=== PATIENT | female | born 1985 | race Caucasian/White ===

== ENCOUNTER 2018-02-06 01:43 | Observation (INO) ==
[2018-02-06 03:07] LABS: Basophils % 0.5 %; Eosinophils # 0.1 K/mcL (0.0-0.6); Eosinophils % 1.2 %; Hematocrit 38.3 % (35.3-44.9); Hemoglobin 13.4 g/dL (11.5-15.4); Immature Granulocytes % 0.2 % (0-4); Lymphocytes % 24.2 %; Mean Corpuscular Hemoglobin 31.2 pg (28.0-33.3); Mean Corpuscular Volume 89.3 fL (83.0-100.0); Monocytes # 0.8 K/mcL (0.0-1.3); Monocytes % 10.2 %; Neutrophils # 5.2 K/mcL (1.6-8.9); Platelet Count 270 K/mcL (140-400); Red Blood Count 4.29 M/mcL (3.82-4.97); Red Cell Distribution Width 13.3 % (11.5-14.5); Segmented Neutrophils % 63.7 %
[2018-02-06 03:28] LABS: BUN/Creatinine Ratio 17 (6-26); Blood Urea Nitrogen 12 mg/dL (6-20); C-Reactive Protein 10 mg/L (Less than 10); Calcium 9.8 mg/dL (8.6-10.3); Carbon Dioxide 27 mEq/L (23-29); Chloride 107 mEq/L (98-107); Glucose 95 mg/dL (70-105); Osmolality,Calculated 296 (280-300); Potassium 3.6 mEq/L (3.5-5.1); Sodium 143 mEq/L (136-145); eGFR For African Americans > 60 (> 60); eGFR For Non-African Americans > 60 (> 60)
[2018-02-06] MEDS ORDERED: Ibuprofen 600 MG TABLET PO ONE (04:07)
--- NOTE | 2018-02-06 04:08 | Emergency Department Note ---
Disposition Clinical Impression: Cellulitis Qualifiers: Site of cellulitis: extremity Site of cellulitis of extremity: lower extremity Laterality: unspecified laterality Qualified Code(s): L03.119 - Cellulitis of unspecified part of limb Disposition: Admitted As Inpatient Condition: Fair General Adult HPI - General Chief complaint: ED Extremity Injury, Lower Stated complaint: BLE swelling Time Seen by Provider: 02/06/18 02:41 Source: patient Limitations: no limitations Nursing Notes Reviewed: Yes Vital Signs Reviewed: Yes - History of Present Illness HPI Narrative: 32-year-old female presents to the emergency department with concern for redness and swelling of the lower extremities. Patient states that [place] Patient reports recently been on amoxicillin for a tooth abscess couple weeks ago and has just finished her course of antibiotics. Patient reports noticing the redness on the left medial ankle cool as well as the right lateral ankle as well. No fevers. Pain Scale: 10 - Related Data Home Medications Medication Instructions Recorded Confirmed Unable To Obtain [Unable to Obtain] 02/06/18 02/06/18 Allergies Allergy/AdvReac Type Severity Reaction Status Date / Time No Known Drug Allergies Allergy See Verified 08/12/15 07:58 Comments All systems ED: reviewed and negative except as stated. 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 Absent: respiratory distress - Cardiovascular Cardiovascular exam: Present: regular rate, normal rhythm, normal heart sounds - Abdominal Exam Abdominal exam: Present: soft, Non-Tender - Expanded Lower Extremity Exam Lower leg exam: Present: other (Mild erythema and tenderness to palpation of the medial malleolus of the left lower extremity as well as the right lateral malleolus of the lower extremity.) - Back Exam Back exam: Present: normal inspection - Neurological Exam Neurological exam: Present: alert, oriented X3 - Psychiatric Psychiatric exam: Present: normal affect, normal mood - Skin Skin exam: Present: warm, dry, intact Course Vital Signs Temperature 97.8 F 02/06/18 01:45 Pulse Rate 112 02/06/18 01:45 Respiratory Rate 18 02/06/18 01:45 Blood Pressure 131/82 02/06/18 01:45 O2 Sat by Pulse Oximetry 97 02/06/18 01:45 Temperature 97.8 F 02/06/18 02:17 Pulse Rate 89 02/06/18 03:57 Respiratory Rate 15 02/06/18 03:57 Blood Pressure 118/80 02/06/18 03:57 O2 Sat by Pulse Oximetry 99 02/06/18 03:57 Oxygen Delivery Oxygen Delivery Room Air Medical Decision Making - MDM Narrative Medical decision making narrative: 31-year-old female presents to the emergency department with concern for cellulitis of the lower extremities bilaterally. Patient has recently been on amoxicillin for antibiotics for a dental abscess. There is some concern for possibility of lack of follow-up recently to patient having worsening condition. CBCs within normal limits as well as a BMP. CRP and sedimentation rate are mildly elevated. No concern for osteomyelitis at this time. At this time, we will admit this patient to the hospital for IV antimicrobials. Patient requested nicotine patch. We have provided this. We also provided ibuprofen for analgesia. Patient hemodynamically stable not in any acute distress at time of admission. Patient agreed with the plan. Patient was initially tachycardic with a pulse of 112. This has since resolved and is currently 89. Vital Signs Temperature 97.8 F 02/06/18 01:45 Pulse Rate 112 02/06/18 01:45 Respiratory Rate 18 02/06/18 01:45 Blood Pressure 131/82 02/06/18 01:45 O2 Sat by Pulse Oximetry 97 02/06/18 01:45 Temperature 97.8 F 02/06/18 02:17 Pulse Rate 89 05/16/18 03:57 Respiratory Rate 15 02/06/18 03:57 Blood Pressure 118/80 02/06/18 03:57 O2 Sat by Pulse Oximetry 99 02/06/18 03:57 Oxygen Delivery Oxygen Delivery Room Air - Lab Data Result diagrams: 02/06/18 02:59 02/06/18 02:59 Lab Results 02/06/18 02/06/18 02/06/18 Range/Units 02:59 02:59 02:59 WBC 8.1 (4.3-11.1) K/mcL RBC 4.29 (3.82-4.97) M/mcL Hgb 13.4 (11.5-15.4) g/dL Hct 38.3 (35.3-44.9) % MCV 89.3 (83.0-100.0) fL MCH 31.2 (28.0-33.3) pg MCHC 35.0 (31.6-35.5) g/dL RDW 13.3 (11.5-14.5) % Plt Count 270 (140-400) K/mcL MPV 9.0 L (9.4-12.4) fL Immature Gran % 0.2 (0-4) % Seg Neutrophils % 63.7 % Lymphocytes % 24.2 % Monocytes % 10.2 % Eosinophils % 1.2 % Basophils % 0.5 % Neutrophils # 5.2 (1.6-8.9) K/mcL Lymphocytes # 2.0 (0.6-4.6) K/mcL Monocytes # 0.8 (0.0-1.3) K/mcL Eosinophils # 0.1 (0.0-0.6) K/mcL Basophils # 0.0 (0.0-0.2) K/mcL ESR 21 H (0-15) mm/hr Sodium 143 (136-145) mEq/L Potassium 3.6 (3.5-5.1) mEq/L Chloride 107 (98-107) mEq/L Carbon Dioxide 27 (23-29) mEq/L BUN 12 (6-20) mg/dL Creatinine 0.71 (0.60-1.20) mg/dL Est GFR ( Amer) > 60 (> 60) Est GFR (Non-Af Amer) > 60 (> 60) BUN/Creatinine Ratio 17 (6-26) Glucose 95 (70-105) mg/dL Calculated Osmolality 296 (280-300) Calcium 9.8 (8.6-10.3) mg/dL C-Reactive Protein 10 H (Less than 10) mg/L Attestation Statement - Attestation Attestation: I examined this patient and my medical decision-making was reviewed with the Resident Physician. I agree with the documented findings, disposition and treatment plan as described except to the extent set forth below. 32-year-old female who was picking mushrooms barefoot and developed lower ankle cellulitis. She has not taken any medications for this. Due to the rapid progression of the infection I would proceed with admission and initiation of antibiotics vancomycin.
[2018-02-06] MEDS: Nicotine 14 MG PATCH.TD24 TD SCH ×2 (04:46→09:14)
[2018-02-06] MEDS ORDERED: Naloxone 0.4 MG/ML INJ IVP PRN (07:50)
--- NOTE | 2018-02-06 07:54 | Internal Med History&Physical ---
Date of Encounter: 02/06/18 Time of Encounter: 07:50 Internal Medicine - H&P: HPI Chief complaint: Bilateral ankle pain redness and swelling Admitted From: Home History of present illness: Ms. Bailey is a 32 year old female with no significant past medical history came to ER with concern for bilateral pain, redness and swelling of the lower extremity is started 3 days ago. [place] think got infected [place] there. Patient has been on amoxicillin for a tooth abscess and is still taking at present but is still guarded infection therefore made her concerned. In ER initial lab tests not a significant finding except elevated CRP. ER physician called on-call hospitalists for the admission with the concern of new onset bilateral cellulitis even on oral antibiotic on OPD basis. Patient denies fever, chills, nausea, vomiting, headache, dizziness, chest pain , shortness of breath, abdominal pain, urinary or bowel complaint. Past Med Surg Social Fam HX - Past Medical History Medical history: no medical history, other Psychiatric history: no psych history - Past Surgical History Surgical History: appendectomy, cholecystectomy - Social History Smoking Status: Current every day smoker Smokeless Tobacco Status: No Alcohol use: none Drug use: marijuana Internal Medicine - H&P: Meds Unable To Obtain [Unable to Obtain] 02/06/18 [History] 3 Allergy/AdvReac Type Severity Reaction Status Date / Time No Known Drug Allergies Allergy See Verified 08/12/15 07:58 Comments All Systems PM: A 10-system review of systems was performed and is negative for pertinent findings except as documented above in the HPI. - Constitutional Vitals: Temp Pulse Resp BP Pulse Ox 98.1 F 76 15 116/68 99 02/06/18 06:29 02/06/18 06:29 02/06/18 06:29 02/06/18 06:29 02/06/18 06:29 Exam: General appearance: No acute distress, A&O X 3 Head exam: Atraumatic Eye exam: EOMI, PERRLA ENT exam: Moist oral mucosa Neck nontender, supple Respiratory exam: Clear to auscultation bilaterally Cardiovascular exam: Regular rate and rhythm, no systolic murmur Abdominal exam: Soft, nontender, nondistended, positive bowel sounds Extremities exam: No calf tenderness, Homans sign negative. Motor 5 x 5 in all extremities Skin -Bilateral ankle redness, swelling, warm, moderate tenderness but no open wound or abscess Neurological exam: Alert, awake, oriented 3, CN II-XII intact, no focal deficits. No facial droop. Normal speech. Normal gait. Romberg sign negative Internal Med - H&P Results - Labs CBC & Chem 7: 02/06/18 02:59 02/06/18 02:59 - Assessment and plan (1) DVT prophylaxis Current Visit: Yes Status: Acute Assessment and plan: Lovenox, SCDs (2) Cellulitis Current Visit: Yes Status: Acute Assessment and plan: Bilateral especially ankle. No open wound or abscess. Consider failed outpatient therapy as infection develop while as patient was already on amoxicillin for tooth abscess. Vancomycin as started in the ER. Leg elevation supportive treatment pain management continue vancomycin. Not convinced to do Doppler venous ultrasound at this time due to very low risk and Homans sign negative with no calf tenderness but will consider if any concern arise Qualifiers: Site of cellulitis: extremity Site of cellulitis of extremity: lower extremity Laterality: unspecified laterality Qualified Code(s): L03.119 - Cellulitis of unspecified part of limb - Time Spent With Patient Total time spent is greater than 50% in coordination of care (as documented) at patient's floor/unit and/or counseling patient: 25 - 35 minutes
[2018-02-06] MEDS ORDERED: Vancomycin (wt based) 1,000 MG VIAL IV SCH (08:00)
[2018-02-06] MEDS ORDERED: Nicotine 14 MG PATCH.TD24 TD SCH (09:00)
[2018-02-07 05:40] LABS: Basophils # 0.1 K/mcL (0.0-0.2); Basophils % 0.9 %; Eosinophils # 0.2 K/mcL (0.0-0.6); Eosinophils % 4.2 %; Hemoglobin 12.8 g/dL (11.5-15.4); Immature Granulocytes % 0.2 % (0-4); Lymphocytes # 2.1 K/mcL (0.6-4.6); Lymphocytes % 37.3 %; Mean Corpuscular HGB Conc 32.8 g/dL (31.6-35.5); Mean Corpuscular Hemoglobin 29.7 pg (28.0-33.3); Mean Corpuscular Volume 90.5 fL (83.0-100.0); Mean Platelet Volume 9.6 fL (9.4-12.4); Monocytes # 0.6 K/mcL (0.0-1.3); Monocytes % 11.2 %; Neutrophils # 2.6 K/mcL (1.6-8.9); Platelet Count 272 K/mcL (140-400); Red Blood Count 4.31 M/mcL (3.82-4.97); Red Cell Distribution Width 13.2 % (11.5-14.5); Segmented Neutrophils % 46.2 %
[2018-02-07 05:57] LABS: BUN/Creatinine Ratio 16 (6-26); Blood Urea Nitrogen 10 mg/dL (6-20); Calcium 9.1 mg/dL (8.6-10.3); Carbon Dioxide 28 mEq/L (23-29); Chloride 109 mEq/L (98-107); Glucose 94 mg/dL (70-105); Osmolality,Calculated 289 (280-300); Potassium 3.8 mEq/L (3.5-5.1); Sodium 140 mEq/L (136-145); eGFR For African Americans > 60 (> 60); eGFR For Non-African Americans > 60 (> 60)
[2018-02-07] MEDS ORDERED: *HR* Enoxaparin 40 MG/0.4 ML SYRINGE SQ SCH (06:00)
[2018-02-07 06:07] LABS: Platelet Estimate Normal (Normal)
[2018-02-07 06:08] LABS: Reactive Lymphocytes Present (Not Present)
[2018-02-07 07:25] VITALS: BP 118/85
[2018-02-07] MEDS: Nicotine 14 MG PATCH.TD24 TD SCH (08:23)
--- NOTE | 2018-02-07 10:47 | Discharge Summary ---
- NOTES TO OUTPATIENT PROVIDER Notes to Outpatient Provider: Patient admitted with bilateral lower extremity cellulitis surrounding her ankles. Has now resolved. Will complete short antibiotic course at home. Orders not resulted at time of discharge: Pending orders 02/07/18 14:00 Vancomycin,Trough Timed Date of Encounter: 02/07/18 Time of Encounter: 10:45 - Discharge Diagnosis (1) Cellulitis Priority: Secondary Status: Acute Qualifiers: Site of cellulitis: extremity Site of cellulitis of extremity: lower extremity Laterality: unspecified laterality Qualified Code(s): L03.119 - Cellulitis of unspecified part of limb (2) DVT prophylaxis Priority: Secondary Status: Acute Hospital course: Ms. Bailey is a 32 year old female Patient with no significant past medical history who was hospitalized here with bilateral lower extremity cellulitis surrounding her ankles. She reported that these symptoms started after she had been collecting mushrooms and believed that it may have been infected over there. Cellulitis has resolved after she received IV antibiotics yesterday. She is clinically stable for discharge. She will be going home on oral antibiotics today. Discharge discussed with: patient - Time Spent with Patient Total time spent providing and/or coordinating discharge services: Less than 30 minutes (20 min) - Discharge Medications Prescriptions: Sulfamethoxazole/Trimeth DS [Bactrim DS] 1 each PO BID #10 tablet Home Medications: Ibuprofen [Motrin] 800 mg PO BID PRN 02/06/18 [History] Sulfamethoxazole/Trimeth DS [Bactrim DS] 1 each PO BID #10 tablet 02/07/18 [Rx] Allergies/Adverse Reactions: 3 Allergy/AdvReac Type Severity Reaction Status Date / Time No Known Drug Allergies Allergy See Verified 02/06/18 09:11 Comments Date of admission: 02/06/18 04:14 Primary care physician: PCP NONE Discharging clinician: Seema Hirsch Anticipated date of discharge: 02/07/18 - Constitutional Vitals: Temp Pulse Resp BP Pulse Ox 98.0 F 90 16 118/85 97 02/07/18 07:22 02/07/18 07:22 02/07/18 07:22 02/07/18 07:22 02/07/18 07:22 General appearance: Present: cooperative, A&O X 3, answers questions appropriately - Neck Neck exam general surgery: Present: supple, trachea midline. Absent: lymphadenopathy - Respiratory Respiratory exam: Present: CTAB. Absent: accessory muscle use, rales, rhonchi, wheezes - Cardiovascular Cardiovascular exam: Present: RRR, +S1, +S2. Absent: diastolic murmur, gallop, rubs, systolic murmur - GI/Abdominal GI/Abdominal exam: Present: normal bowel sounds, soft, no peritoneal signs. Absent: distended, tenderness - Extremities Exam Extremities exam: Present: warm, radial pulses palpable and symmetrical. Absent : calf tenderness, cyanotic, pedal edema - Patient Status Disposition: Home, Self-Care Condition: Good Functional capacity at discharge: independent ambulation Overall status at discharge: patient is progressing back to baseline - Discharge Instructions Instructions: Cellulitis (DC) Follow Up With: Jean-Pierre Bennett MD [Non-Partnered Physician] - (Please bring photo ID, insurance card and any medications in the original bottle. If you need to cancel please give a 24 hour notice. Thank you) NONE,PCP [Primary Care Provider] - (in 1-2 weeks) - Diet and Activity Activity: increase activity as tolerated Diet: advance to your usual diet
[2018-02-07] MEDS ORDERED: Aminoglycoside Consult 1 EACH MC ONE (12:29)
== END 2018-02-07 12:30 | disposition home or self-care (01) ==
LOC: EMEROO 01:43 → 3ANU 01:43
PROVIDERS: ADMIT General Practice; ATTEND Family Medicine